=== PATIENT | female | born 1965 | race Native Hawaiian/Other Pacific Islander ===

== ENCOUNTER 2020-12-05 18:35 | Emergency (ER) | payer OTHER ==
[~2020-12-05] VITALS: Ht 157.5 cm; Wt 85.7 kg
[2020-12-05 22:11] VITALS: BP 138/72; TEMP 98.4
== END 2020-12-05 22:16 | disposition home or self-care (01) ==
LOC: ED 18:35
PROC: 0CQ10ZZ Repair Lower Lip, Open Approach (ICD-10-PCS; principal; 2020-12-05)
PROC: 0CQ00ZZ Repair Upper Lip, Open Approach (ICD-10-PCS; 2020-12-05)
DX: S01.511A Laceration without foreign body of lip, initial encounter (principal); S11.81XA Laceration without foreign body of other specified part of neck, initial encounter; S00.31XA Abrasion of nose, initial encounter; W54.0XXA Bitten by dog, initial encounter; Y92.89 Other specified places as the place of occurrence of the external cause
CPT/HCPCS: 90471; 90715; 96372; 99283; J2175; J2405